=== PATIENT | female | born 1955 | race African-American/Black ===

== ENCOUNTER 2023-05-06 23:28 | Emergency (ER) | payer BC, OTHER ==
[~2023-05-06] VITALS: Ht 172.7 cm; Wt 100.0 kg
[~2023-05-06 23:28] MED LIST: AZIT-81 PO; BENZ100C19 PO; NOR10T GT; OXY10CRT PO
[2023-05-07 00:20] LABS: Basophils # (auto) 0 10 ^3/uL (0-0.2); Basophils % (auto) 0.4 % (0.0-2.0); Eosinophils # (auto) 0.1 10 ^3/uL (0-0.8); Hematocrit 46.3 % (36.0-46.0); Hemoglobin 15.1 g/dL (12.2-16.2); Lymphocytes # (auto) 2.7 10 ^3/uL (0.4-5.4); Lymphocytes % (auto) 35.6 % (10.0-50.0); Mean Corpuscular Hemoglobin 29.6 pg (28.0-32.0); Mean Corpuscular Hgb Conc. 32.5 g/dL (32.0-36.0); Mean Corpuscular Volume 90.9 fL (80.0-100.0); Monocytes # (auto) 0.5 10 ^3/uL (0-1.3); Monocytes % (auto) 6.9 % (0.0-12.0); Neutrophils # (auto) 4.2 10 ^3/uL (1.6-8.6); Neutrophils % (auto) 56.1 % (37.0-80.0); Nucleated Red Blood Cells % 0.1 %; Red Blood Cells 5.09 10^6/uL (4.0-5.20); Red Cell Distribution Width 14.9 % (11.8-14.3); White Blood Cell 7.5 10^3/uL (4.4-10.8)
[2023-05-07 00:32] LABS: INR 0.92 (0.9-1.15); Prothrombin Time 9.7 sec (9.3-11.8)
[2023-05-07 00:36] LABS: Alanine Aminotransferase 15 U/L (7-40); Alkaline Phosphatase 102 U/L (46-116); Calcium 9.6 mg/dL (8.5-10.1); Carbon Dioxide 21 mmol/L (20-30); Chloride 107 mmol/L (98-107)
[2023-05-07 00:37] LABS: Albumin 4.5 g/dL (3.2-4.8); Anion Gap 13 (5-15); Aspartate Aminotransferase 16 U/L (13-40); BUN/Creatinine Ratio 14.6 (10.0-20.0); Bilirubin, Total 0.3 mg/dL (0.2-1.0); Blood Urea Nitrogen 12 mg/dL (9-23); Glucose 99 mg/dL (74-106); Potassium 3.7 mmol/L (3.5-5.1); Sodium 141 mmol/L (136-145); Total Protein 7.4 g/dL (5.7-8.2)
[2023-05-07] MEDS ORDERED: MORPHINE SULFATE 4 MG/ML SYR/VIAL IV ONE ×2 (03:45)
[2023-05-07 04:55] VITALS: BP 141/91; PULSE 76; RESP 12; TEMP 98.3; O2SAT 95
== END 2023-05-07 04:56 | disposition short-term general hospital (02) ==
LOC: ER 23:28 → EDBD 23:28 → ER 05-07 04:56
DX: M97.11XA Periprosthetic fracture around internal prosthetic right knee joint, initial encounter (principal); I25.10 Atherosclerotic heart disease of native coronary artery without angina pectoris; F17.210 Nicotine dependence, cigarettes, uncomplicated; Z79.2 Long term (current) use of antibiotics; Z79.899 Other long term (current) drug therapy; W18.39XA Other fall on same level, initial encounter; Y93.89 Activity, other specified; Y92.89 Other specified places as the place of occurrence of the external cause; Y99.8 Other external cause status
CPT/HCPCS: 29505; 36415; 73552; 73562; 80053; 85025; 85610; 96374; 96376; 99285; J2270